=== PATIENT | male | born 1950 | race Caucasian/White ===

== ENCOUNTER → 2020-02-02 | Outpatient (CLI) | payer OTHER ==
[~2020-02-02] MED LIST: ACETAMINOPHEN325 M1 PO; ADULT LOW DOSE81 MG PO; BENAZEPRIL HCL20 MG PO; CHOLEST OFF450 MG PO; CO Q-10100 MG PO; DARVOCET-N 1001 EACH PO; FISHOIL OR; HYDROCODON-ACE1 EAC7 PO; HYDROCODONE-AP1 EAC6 PO; KEFLEX500 MG PO; LASIX 40 MG TAB40 M1 PO; LIPITOR40 MG PO; LIPOIC ACID1 GM; LOFIBRA160 MG PO; LOPRESSOR25 PO; LOVAZA1000 MG PO; MEGA RED; MULTIPLE VITAM1 EAC3 PO; NAPROSYN500 MG PO; NORCO 5-325 TA1 EACH PO; PACERONE 200 M200 M1 PO; PERCOCET 5-3251 EACH PO; PERIDEX 0.12%473 M1 SSP; PLAVIX 75 MG TA75 M1 PO; POTASSIUM20 PO; SEROQUEL; TAMSULOSIN HCL0.4 MG PO; UNICOMPLEX M TA1 TA1 PO; VITAMIN B-1100 M1 PO; VITAMIN B-12500 MCG PO; VITAMIN C100 M1 PO; VITAMIN D1000 UNI1 PO; ZESTRIL5 MG PO; [UNRECOGNIZED DRUG - OTHER] PO
== END ==
LOC: SJCVCIMAG 09:21
DX: T82.856A Stenosis of peripheral vascular stent, initial encounter (principal); I70.202 Unspecified atherosclerosis of native arteries of extremities, left leg; I45.10 Unspecified right bundle-branch block; R94.31 Abnormal electrocardiogram [ECG] [EKG]; I25.810 Atherosclerosis of coronary artery bypass graft(s) without angina pectoris; E78.00 Pure hypercholesterolemia, unspecified; G81.10 Spastic hemiplegia affecting unspecified side; I71.4 Abdominal aortic aneurysm, without rupture; I10 Essential (primary) hypertension; R47.01 Aphasia; M24.541 Contracture, right hand; E78.5 Hyperlipidemia, unspecified; Z79.82 Long term (current) use of aspirin; Z95.820 Peripheral vascular angioplasty status with implants and grafts; Z79.899 Other long term (current) drug therapy; Z95.1 Presence of aortocoronary bypass graft; Z82.49 Family history of ischemic heart disease and other diseases of the circulatory system; Y83.8 Other surgical procedures as the cause of abnormal reaction of the patient, or of later complication, without mention of misadventure at the time of the procedure; Y92.89 Other specified places as the place of occurrence of the external cause

== ENCOUNTER → 2020-07-17 | Outpatient (CLI) | payer OTHER | LOC: SJCVC 12:56 → SJCVCIMAG 12:56 | PROVIDERS: ATTEND Internal Medicine Cardiovascular Disease | DX: R94.31 Abnormal electrocardiogram [ECG] [EKG] (principal); I45.10 Unspecified right bundle-branch block; I25.10 Atherosclerotic heart disease of native coronary artery without angina pectoris; M79.604 Pain in right leg; E78.00 Pure hypercholesterolemia, unspecified; G81.10 Spastic hemiplegia affecting unspecified side; I73.9 Peripheral vascular disease, unspecified; I77.9 Disorder of arteries and arterioles, unspecified; I71.4 Abdominal aortic aneurysm, without rupture; E78.1 Pure hyperglyceridemia; Z95.1 Presence of aortocoronary bypass graft; Z79.899 Other long term (current) drug therapy ==

== ENCOUNTER → 2020-08-02 | Outpatient (CLI) | payer OTHER | LOC: SJCVCIMAG 09:54 | PROVIDERS: ATTEND Internal Medicine Cardiovascular Disease | DX: I71.4 Abdominal aortic aneurysm, without rupture (principal); I72.3 Aneurysm of iliac artery; I73.9 Peripheral vascular disease, unspecified; Z95.828 Presence of other vascular implants and grafts; Z98.890 Other specified postprocedural states ==

== ENCOUNTER 2020-11-15 17:20 | Observation (INO) | payer OTHER ==
[~2020-11-15] VITALS: Ht 177.8 cm; Wt 81.6 kg
--- NOTE | ~2020-11-15 | EMS ---
[address] [address] EMS Patient Care Report Name: GEORGINA VANG [id number] Admission: Attend Phys: Discharge: Date of : 46 Report #: [id number] THIS REPORT FOR: //name// Report Transmitted: 11/15/2020 16:55 EMS Care Summary [facility] Incident [id number] @ 11/15/2020 16:31 Incident Location [address] [place] [address]/[place] [address] Patient GEORGINA VANG Male, 69 Years 1950 Patient Address [address] [facility]/[place] [address] Patient History Stroke/CVA,Hypoparathyroidism, Patient Allergies Compazine, Patient Medications Levothyroxine, Rosuvastatin, Benazepril, Chief Complaint syncope Disposition Transported No Lights/[place] Dispatch Reason Unconscious/Fainting Transported To [facility] Units dispatched to a private residence for a 69 year old male pt with a chief complaint of syncope. Pt was located laying supine on front porch. [address] [address] EMS Patient Care Report Name: GEORGINA VANG [facility] [id number] Admission: Attend Phys: Discharge: Date of : 46 Report #: [id number] Pt presented with a patent airway and warm dry skin. Bystanders on scene reported the pt was sitting on the front porch when he went ridged and passed out. Neighbors stated that the pt had two syncopal episodes. Neighbors reported the pt had a hx of a stroke that left him with right sided deficits and the inability to verbalize with others. Pt was able to answer yes or no questions but nothing beyond that. Pt denied chest pain or SOA. Pt stated that he was currently light headed. 12 lead EKG was preformed and showed no ST elevation at this time. Pt was placed on stretcher by crew and secured using straps. 20 g IV was established in pts left AC. Blood glucose check was 89. Pt denied nausea and vomiting. Pt stated he was no longer light headed. Pt had no other complaints at this time. Pt was transported without incident to [facility] without incident and care was transferred to ED staff. Initial Vitals @16:40P: 127,BP: 122/76,Pain: 0/10,GCS: 15,SpO2: 98, @17:10P: 68,BP: 113/60,Pain: 0/10,GCS: 15,SpO2: 99, @16:55P: 92,BP: 123/67,Pain: 0/10,GCS: 15,SpO2: 98, Assessments @16:40MENTAL:No Abnormalities,SKIN:No Abnormalities,HEENT:Head/Face: No Abnormalities,Eyes: No Abnormalities,Neck/Airway: No Abnormalities,LUNG SOUNDS:General: No Abnormalities,Left Upper: No Abnormalities,Right Upper: No Abnormalities,Left Lower: No Abnormalities,Right Lower: No Abnormalities,ABDOMEN:General: No Abnormalities,Left Upper: No Abnormalities,Right Upper: No Abnormalities,Left Lower: No Abnormalities,Right Lower: No Abnormalities,PELVIS//GI:No Abnormalities,EXTREMITIES:Capillary Refill: Left Upper: < 2 Sec,Left Arm: No Abnormalities,Right Arm: No Abnormalities,Left Leg: No Abnormalities,Right Leg: No Abnormalities,PULSE:Radial: 2+ Normal,NEURO:No Abnormalities,@16:55MENTAL:No Abnormalities,SKIN:No Abnormalities,HEENT:Head/Face: No Abnormalities,Eyes: No Abnormalities,Neck/Airway: No Abnormalities,LUNG SOUNDS:General: No Abnormalities,Left Upper: No Abnormalities,Right Upper: No Abnormalities,Left Lower: No Abnormalities,Right Lower: No Abnormalities,ABDOMEN:General: No Abnormalities,Left Upper: No Abnormalities,Right Upper: No Abnormalities,Left Lower: No Abnormalities,Right Lower: No Abnormalities,PELVIS//GI:No Abnormalities,EXTREMITIES:Capillary Refill: Left Upper: < 2 Sec,Left Arm: No Abnormalities,Right Arm: No Abnormalities,Left Leg: No Abnormalities,Right Leg: No Abnormalities,PULSE:Radial: 2+ Normal,NEURO:No Abnormalities, Impression Syncope / Fainting Procedures @16:4512-Lead ECGResponse: UnchangedSucceeded@16:51Saline Lock 0cc (20 ga) Site: Antecubital-LeftResponse: UnchangedSucceeded@16:40ALS AssessmentResponse: UnchangedSucceeded@16:52General CommentsResponse: Unchanged [address] [address] EMS Patient Care Report Name: GEORGINA VANG Room #: PRE [facility] Mendoza#: [id number] Admission: Attend Phys: Discharge: Date of : 46 Report #: [id number] Timeline 16:30,Call Received 16:30,Psap Call 16:31,Dispatched 16:32,En Route 16:39,On Scene 16:40,At Patient 16:40,ALS Assessment,Response: UnchangedSucceeded, 16:40,BP: 122/76 M,PULSE: 127,RR: R,SPO2: 98 Ox,ETCO2: ,BG: ,PAIN: 0,GCS: 15, 16:45,12-Lead ECG,Response: UnchangedSucceeded, 16:49,Depart Scene 16:51,Saline Lock 0cc 20 ga Site: Antecubital-Left,Response: UnchangedSucceeded, 16:52,General Comments,Response: Unchanged 16:55,BP: 123/67 M,PULSE: 92,RR: R,SPO2: 98 Ox,ETCO2: ,BG: ,PAIN: 0,GCS: 15, 17:10,BP: 113/60 M,PULSE: 68,RR: R,SPO2: 99 Ox,ETCO2: ,BG: ,PAIN: 0,GCS: 15, 17:16,At Destination 17:32,Call Closed Disclaimer v1.1 Copyright 2020 [employer] This EMS Care Summary contains data elements from the applicable legal record (which may be displayed differently). It is designed to provide pertinent information for the following purposes: continuity of care, clinical quality, and state data reporting. The complete legal record is available to ED staff and administrators of the receiving hospital in ES's Patient Tracker. All data is provided "as is."
[2020-11-15 17:21] VITALS: BP 139/77
[2020-11-15 17:52] LABS: ABSOLUTE NEUTROPHILS 4.9 thou/uL (1.4-8.2); BASOPHILS 0.9 % (0.0-2.0); EOSINOPHILS 0.8 % (0.0-3.0); HEMATOCRIT 39.2 % (42.0-52.0); HEMOGLOBIN 13.3 gm/dL (14.0-18.0); LYMPHOCYTES 27.3 % (24.0-44.0); MCH 32.8 pg (26.0-34.0); MCHC 33.9 g/dL (28.0-37.0); MCV 96.9 fL (80.0-100.0); MONOCYTES 6.5 % (1.0-8.0); PLATELET COUNT 177 thou/uL (150-400); POLYS 64.5 % (36.0-66.0); RBC 4.04 mil/uL (4.50-6.00); RDW 13.5 % (10.5-14.5); WBC 7.5 thou/uL (4.0-11.0)
[2020-11-15 18:11] LABS: ANION GAP 11 mmol/L (7-16); BUN 27 mg/dL (7-18); CALCIUM 9.3 mg/dL (8.5-10.1); CHLORIDE 102 mmol/L (98-107); CO2 23 mmol/L (21-32); CREATININE 1.8 mg/dL (0.7-1.3); GLUCOSE 94 mg/dL (74-106); POTASSIUM 4.4 mmol/L (3.5-5.1); SODIUM 136 mmol/L (136-145)
[2020-11-15 18:21] LABS: MAGNESIUM 1.7 mg/dL (1.8-2.4); TROPONIN-I <0.06 ng/mL (<0.06)
[2020-11-15 18:50] LABS: URINE BILIRUBIN NEGATIVE (Negative); URINE BLOOD NEGATIVE (Negative); URINE CLARITY CLEAR; URINE COLOR YELLOW; URINE GLUCOSE-RANDOM* NEGATIVE (Negative); URINE KETONES NEGATIVE (Negative); URINE LEUKOCYTES-REFLEX NEGATIVE (Negative); URINE NITRITE-REFLEX NEGATIVE (Negative); URINE PROTEIN (DIPSTICK) TRACE (Negative); URINE SPECIFIC GRAVITY >= 1.030 (1.005-1.035); URINE UROBILINOGEN 0.2 E.U./dl (0.2-1.0)
[2020-11-15 18:57] LABS: AMP/METHAMP Negative (Negative); BARBITURATES Negative (Negative); BENZODIAZEPINES Negative (Negative); COCAINE Negative (Negative); METHADONE Negative (Negative); OPIATES Negative (Negative); PCP Negative (Negative)
[2020-11-15] MEDS ORDERED: ROSUVASTATIN CA20 MG PO (19:20)
[2020-11-15] MEDS ORDERED: LEVO-T25 MCG PO (19:20)
--- NOTE | 2020-11-15 22:16 | NUR ---
Pt gives permission to talk with neighbor who help take care of him Cristin and Nancyarun Missael [phone] Cristin will bring phone scrap charger in the am
[2020-11-16 05:41] VITALS: BP 142/69
[2020-11-16 06:02] VITALS: BP 140/63
[2020-11-16 06:15] VITALS: BP 147/87
[2020-11-16 06:17] LABS: CALCIUM 8.7 mg/dL (8.5-10.1); CREATININE 1.7 mg/dL (0.7-1.3); POTASSIUM 4.7 mmol/L (3.5-5.1)
--- NOTE | 2020-11-16 06:27 | NUR ---
PT ADMITTED TO 205 AT APPROX 0605. PT WAS PLACED ON TELE AND ORIENTED TO HIS ROOM. VITALS STABLE.
--- NOTE | 2020-11-16 07:20 | EKG ---
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 : 1950 Requested By: Ai Cortez Order Number: [id number] MD: Sai Diego Measurements Intervals [place] Rate: 67 P: 68 AR: 188 QRS: 38 QRSD: 154 T: 33 QT: 427 QTc: 451 Interpretive Statements Sinus rhythm Right bundle branch block Compared to ECG 10/25/2015 12:42:55 Ventricular premature complex(es) no longer present Myocardial infarct finding no longer present Electronically Signed On 11-16-2020 7:19:49 [employer] by Sai Diego [email or web address] <ELECTRONICALLY SIGNED> By: Sai Diego MD, [facility] 11/16/20 0719 1749 1749 Sai Diego MD, FACC /EPI
--- NOTE | 2020-11-16 09:37 | 2DMMODE ---
[facility] [address] [place] [address] 2 D/M-MODE ECHOCARDIOGRAM Name: GEORGINA VANG Room #: 205-P ADM Michael MCruz#: [id number] Admission: 11/15/20 Attend Phys: Candace Rendon Discharge: Date of : 46 Report #: [id number] THIS REPORT FOR: cc: Feroz Paniagua MD, David R. MD Lammoglia, Francisco J. MD ~ APPROVED REPORT Study performed: 11/16/2020 08:56:49 EXAM: Comprehensive 2D, Doppler, and color-flow Echocardiogram Patient Location: Bedside Room #: 205 Status: routine BSA: 2.00 HR: 62 bpm BP: 147/87 mmHg Rhythm: NSR Other Information Study Quality: Good Indications Syncope. Hx: LA, CABG, stents, CVA, PVD, HTN, HLD. 2D Dimensions RVDd: 34.22 mm IVSd: 11.32 (7-11mm) LVDd: 47.99 mm PWd: 10.41 (7-11mm) Ascending Ao: 38.03 (22-36mm) LVDs: 30.67 (25-40mm) Left Atrium: 36.65 (27-40mm) Aortic Root: 38.47 mm Volumes Left Atrial Volume (Systole) Single Plane 4CH: 36.90 mL Single Plane 2CH: 67.99 mL LA ESV Index: 28.00 mL/m2 Aortic Valve AoV Peak Mike.: 1.28 m/s AO Peak Gr.: 6.59 mmHg LVOT Max P.49 mmHg LVOT Max V: 1.06 m/s [facility] [address] [address] 2 D/M-MODE ECHOCARDIOGRAM Name: GEORGINA VANG Room #: 205-P [facility].#: [id number] Admission: 11/15/20 Attend Phys: Candace Sanchez Nov Discharge: Date of : 46 Report #: [id number] Mitral Valve E/A Ratio: 1.3 MV Decel. Time: 205.94 ms MV E Max Mike.: 0.71 m/s MV A Mike.: 0.53 m/s MV PHT: 59.72 ms IVRT: 78.43 ms Pulmonary Valve PV Peak Mike.: 1.03 m/s PV Peak Gr.: 4.20 mmHg Pulmonary Vein P Vein S: 0.52 m/s P Vein D: 0.44 m/s P Vein S/D Ratio: 1.18 Tricuspid Valve TR Peak Mike.: 1.72 m/s RAP Estimate: 5.00 mmHg TR Peak Gr.: 12.00 mmHg PA Pressure: 17.00 mmHg Left Ventricle The left ventricle is normal size. There is normal LV segmental wall motion. There is normal left ventricular wall thickness. The left ventricular systolic function is normal. LVEF is 60-65%. The left ventricular diastolic function is normal. Right Ventricle The right ventricle is normal size. The right ventricular systolic function is normal. Atria The left atrium size is normal. The right atrium size is normal. Aortic Valve The aortic valve is normal in structure. No aortic regurgitation is present. There is no aortic valvular stenosis. Mitral Valve The mitral valve is normal in structure. Trace mitral regurgitation. No evidence of mitral valve stenosis. Tricuspid Valve The tricuspid valve is normal in structure. Trace tricuspid [facility] [address] [place] [address] 2 D/M-MODE ECHOCARDIOGRAM Name: GEORGINA VANG Room #: 205- ADM IN M.R.#: [id number] Admission: 11/15/20 Attend Phys: Candace Fischer Discharge: Date of : 46 Report #: [id number] regurgitation. Estimated PAP [id number]. Pulmonic Valve The pulmonary valve is normal in structure. Trace pulmonic regurgitation. Great Vessels Aorta measures at the upper limits of normal. IVC is normal in size and collapses >50% with inspiration. Pericardium There is no pericardial effusion. <Conclusion> The left ventricle is normal size. The left ventricular systolic function is normal. LVEF is 60-65%. The aortic valve is normal in structure. The aortic valve is normal in structure. The mitral valve is normal in structure. Trace mitral regurgitation. The pulmonary valve is normal in structure. Trace pulmonic regurgitation. Aorta measures at the upper limits of normal. There is no pericardial effusion. <ELECTRONICALLY SIGNED> By: Андрей Castillo MD 11/16/2036 5 5 Андрей Castillo MD /INF
--- NOTE | 2020-11-16 14:37 | NUR ---
PT TO BE DISCHARGED TODAY. REPORTS LESS DIZZYNESS, FEELING MUCH BETTER. PT HAS EXPRESSIVE APHASIA. BUT IS ABLE TO COMMUNICATE WITH YES/NO ANSWERS. PT AFEBRILE, ADEQUATE UOP, NO BM, ADEQUATE APPETITE. ECHO COMPLETE DONE TODAY. PT HAS BEEN UPDATED AND EDUCATED ON CONDITION AND POC. PT PROGRESSING TOWARDS POC.
[2020-11-16 14:55] VITALS: BP 147/87
== END 2020-11-16 15:47 | disposition home or self-care (01) ==
LOC: ER 17:20 → 2N 21:09 → EROBS 21:09 → 2N 11-16 06:14
PROVIDERS: Emergency Medicine; Nurse Practitioner Family; ADMIT Hospitalist; ATTEND Hospitalist
DX: R55 Syncope and collapse (principal); I25.10 Atherosclerotic heart disease of native coronary artery without angina pectoris; I25.2 Old myocardial infarction; I12.9 Hypertensive chronic kidney disease with stage 1 through stage 4 chronic kidney disease, or unspecified chronic kidney disease; N18.30 Chronic kidney disease, stage 3 unspecified; I73.9 Peripheral vascular disease, unspecified; I95.9 Hypotension, unspecified; E83.42 Hypomagnesemia; E03.9 Hypothyroidism, unspecified; Z95.1 Presence of aortocoronary bypass graft; Z95.818 Presence of other cardiac implants and grafts; Z79.899 Other long term (current) drug therapy; Z20.822 Contact with and (suspected) exposure to COVID-19

== ENCOUNTER → 2021-02-02 | Outpatient (CLI) | payer OTHER ==
[~2021-02-02] MED LIST changes: +LEVO-T25 MCG PO; +ROSUVASTATIN CA20 MG PO
== END ==
LOC: SJCVC 14:39
PROVIDERS: ATTEND Internal Medicine Cardiovascular Disease
DX: R94.31 Abnormal electrocardiogram [ECG] [EKG] (principal); I45.10 Unspecified right bundle-branch block; I25.10 Atherosclerotic heart disease of native coronary artery without angina pectoris; I10 Essential (primary) hypertension; E78.00 Pure hypercholesterolemia, unspecified; I73.9 Peripheral vascular disease, unspecified; G81.10 Spastic hemiplegia affecting unspecified side; R47.01 Aphasia; I67.9 Cerebrovascular disease, unspecified; I77.9 Disorder of arteries and arterioles, unspecified; I71.4 Abdominal aortic aneurysm, without rupture; E78.1 Pure hyperglyceridemia; M24.541 Contracture, right hand; Z86.73 Personal history of transient ischemic attack (TIA), and cerebral infarction without residual deficits; Z72.89 Other problems related to lifestyle; Z79.82 Long term (current) use of aspirin; Z79.899 Other long term (current) drug therapy; Z88.1 Allergy status to other antibiotic agents